=== PATIENT | female | born 1945 | race Two or more races ===

== ENCOUNTER 2017-04-25 10:06 | Outpatient (CLI) | payer OTHER ==
[~2017-04-25 10:06] MED LIST: GABAPENTIN600 MG PO; HYZAAR 100-121 UDTAB PO
== END 2017-04-25 10:13 | disposition home or self-care (01) ==
LOC: MAMO-SONO 10:06
DX: Z12.31 Encounter for screening mammogram for malignant neoplasm of breast (principal); Z87.898 Personal history of other specified conditions

== ENCOUNTER 2017-04-25 12:41 | Outpatient (CLI) | payer OTHER | END 2017-04-25 12:54 | disposition home or self-care (01) | LOC: LAB 12:41 | DX: E78.5 Hyperlipidemia, unspecified (principal); N91.2 Amenorrhea, unspecified; E34.8 Other specified endocrine disorders; N95.1 Menopausal and female climacteric states; N39.0 Urinary tract infection, site not specified; E55.9 Vitamin D deficiency, unspecified ==

== ENCOUNTER 2017-05-02 09:57 | Emergency (ER) | payer OTHER ==
[~2017-05-02] VITALS: Ht 157.5 cm; Wt 84.8 kg
[2017-05-02] MEDS ORDERED: BETAMETHASONE A TOP (13:21)
[2017-05-02] MEDS ORDERED: ZYRTEC10 MG PO (13:21)
== END 2017-05-02 14:37 | disposition home or self-care (01) ==
LOC: ER 09:57
DX: R21 Rash and other nonspecific skin eruption (principal)

== ENCOUNTER 2017-06-28 09:06 | Emergency (ER) | payer OTHER ==
[~2017-06-28] VITALS: Ht 152.4 cm; Wt 83.5 kg
[~2017-06-28 09:06] MED LIST changes: +BETAMETHASONE A TOP; +ZYRTEC10 MG PO
[2017-06-28] MEDS ORDERED: MEDROLPACK PO (12:50)
== END 2017-06-28 13:04 | disposition home or self-care (01) ==
LOC: ER 09:06
DX: J45.998 Other asthma (principal); J06.9 Acute upper respiratory infection, unspecified; J11.1 Influenza due to unidentified influenza virus with other respiratory manifestations

== ENCOUNTER 2018-05-10 10:50 | Emergency (ER) | payer OTHER ==
[~2018-05-10] VITALS: Ht 160 cm; Wt 85.7 kg
[~2018-05-10 10:50] MED LIST changes: +MEDROLPACK PO
[2018-05-10] MEDS ORDERED: SINGULAIR10 MG PO (11:49)
[2018-05-10] MEDS ORDERED: NORVASC10 MG PO (11:49)
[2018-05-10] MEDS ORDERED: FLOVENT DISKUS50 MCG IH (11:51)
[2018-05-10] MEDS ORDERED: AZELASTINE205.5 MCG/ NS (11:51)
== END 2018-05-10 19:09 | disposition home or self-care (01) ==
LOC: ER 10:50
DX: J45.998 Other asthma (principal)

== ENCOUNTER 2018-06-18 11:17 | Outpatient (CLI) | payer OTHER ==
[~2018-06-18 11:17] MED LIST changes: +AZELASTINE205.5 MCG/ NS; +FLOVENT DISKUS50 MCG IH; +NORVASC10 MG PO; +SINGULAIR10 MG PO
== END 2018-06-18 11:22 | disposition home or self-care (01) ==
LOC: MAMO-SONO 11:17
DX: Z12.31 Encounter for screening mammogram for malignant neoplasm of breast (principal); Z87.898 Personal history of other specified conditions; N63.10 Unspecified lump in the right breast, unspecified quadrant; N63.20 Unspecified lump in the left breast, unspecified quadrant

== ENCOUNTER 2018-07-06 11:28 | Outpatient (CLI) | payer OTHER | END 2018-07-06 11:32 | disposition home or self-care (01) | LOC: SONOGRAMA 11:28 | DX: N60.11 Diffuse cystic mastopathy of right breast (principal); N60.12 Diffuse cystic mastopathy of left breast ==

== ENCOUNTER 2019-01-09 11:09 | Outpatient (CLI) | payer OTHER | END 2019-01-09 11:13 | disposition home or self-care (01) | LOC: SONOGRAMA 11:09 → MAMO-SONO 12:15 | DX: N60.12 Diffuse cystic mastopathy of left breast (principal); N60.11 Diffuse cystic mastopathy of right breast ==

== ENCOUNTER 2019-08-02 14:10 | Outpatient (CLI) | payer OTHER | END 2019-08-02 14:15 | disposition home or self-care (01) | LOC: MAMO-SONO 14:10 | PROVIDERS: ATTEND Surgery | DX: N60.11 Diffuse cystic mastopathy of right breast (principal); N60.12 Diffuse cystic mastopathy of left breast; Z12.31 Encounter for screening mammogram for malignant neoplasm of breast; Z87.898 Personal history of other specified conditions ==

== ENCOUNTER 2020-03-22 12:23 | Emergency (ER) | payer OTHER ==
[~2020-03-22] VITALS: Ht 157.5 cm; Wt 88.5 kg
[2020-03-22] MEDS ORDERED: LIPITOR40 M1 (12:40)
[2020-03-22] MEDS ORDERED: HYDROCHLOROTH12.5 MG (12:40)
[2020-03-22] MEDS ORDERED: PRILOSEC10 MG (12:41)
== END 2020-03-22 13:57 | disposition home or self-care (01) ==
LOC: ER 12:23
DX: M72.2 Plantar fascial fibromatosis (principal)